=== PATIENT | female | born 1985 | race Caucasian/White ===

== ENCOUNTER 2019-03-16 16:50 | Inpatient (IN) | payer BC ==
[2019-03-16] MEDS ORDERED: NS / Oxytocin 40 units/1000ml 1,000 ML IV PRN (17:34)
[2019-03-16] MEDS ORDERED: Ibuprofen 800 MG TAB PO PRN (17:34)
[2019-03-16] MEDS ORDERED: Methylergonovine 0.2 MG/ML VIAL IM PRN ×2 (17:34→22:35)
[2019-03-16] MEDS ORDERED: Promethazine HCl 25 MG/ML VIAL IM PRN (17:34)
[2019-03-16] MEDS ORDERED: Carboprost 250 MCG/ML AMP IM PRN (17:34)
[2019-03-16] MEDS ORDERED: Diphenoxylate HCl/Atropine Tablet PO PRN ×2 (17:34)
[2019-03-16] MEDS ORDERED: Lactated Ringer's 1,000 ML IV PRN (17:34)
[2019-03-16] MEDS ORDERED: Ondansetron PF 4 MG/2 ML Vial IVP PRN (17:34)
[2019-03-16] MEDS ORDERED: Misoprostol 200 MCG TAB PR PRN (17:34)
[2019-03-16] MEDS ORDERED: HYDROcodone/Acetaminophen 5/325 mg Tablet PO PRN ×4 (17:34→22:35)
[2019-03-16] MEDS ORDERED: Lidocaine 1% (PF) 30 ML VIAL SC PRN (17:34)
[2019-03-16 18:00] LABS: Hemoglobin 13.3 g/dL (12.0-16.0); Mean Corpuscular HGB CONC 33.9 g/dL (32.0-36.0); Mean Corpuscular Hemoglobin 30.8 pg (27.0-31.0); Mean Corpuscular Volume 90.9 fL (78.0-98.0); Platelet Count 237 thou/uL (130-400); White Blood Cell (WBC) Count 14.2 thou/uL (4.8-10.8)
[2019-03-16 18:32] LABS: ALT (SGPT) 12 U/L (8-55); AST (SGOT) 21 U/L (5-34); Albumin 3.5 g/dL (3.5-5.0); Alkaline Phosphatase 192 U/L (40-150); Anion Gap 15 mmol/L (10-20); BUN (Urea Nitrogen) 12 mg/dL (7.0-18.7); Bilirubin, Total 0.3 mg/dL (0.2-1.2); Calc. Creatinine Clearance 116 mL/min (70-130); Calcium 8.8 mg/dL (7.8-10.44); Carbon Dioxide 19 mmol/L (22-29); Chloride 106 mmol/L (98-107); Estimated GFR-MDRD 83; Globulin 2.8 g/dL (2.4-3.5); Glucose 88 mg/dL (70-105); Protein, Total 6.3 g/dL (6.0-8.3); Sodium 136 mmol/L (136-145)
[2019-03-16 18:39] LABS: HBSAg Index 0.78 S/CO (0-0.99); Hep B Surf Ag Non-Reactive S/CO (NonReactive); Syphilis Antibody Nonreactive (Nonreactive); Syphilis Antibody Index 0.05 S/CO (<1.00 Non-Reactive)
[2019-03-16] MEDS ORDERED: Lidocaine 1% (PF) 30 ML VIAL ONE (18:46)
--- NOTE | 2019-03-16 20:36 | PDOC.LDHP ---
Labor and Delivery H&P Chief complaint: contractions HPI: Patient started having irregular contractions at 10am this morning. Denies ROM. Reports positive movement. 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 Current gestational age (weeks): 40 (6) Due date: 03/10/18 Dating criteria: last menstrual period Grav: 2 Para: 1 OB History Details: 2016 at 42 weeks. 7.2. female Current complications: none Abnormal US findings: No Past Medical History: HSV, on suppression. CF carrier, is neg CF carrier Current medications: pre-randi vitamins, other (Valtrex 500mg PO QD) Previous surgical history: none Allergies/Adverse Reactions: Allergies Allergy/AdvReac Type Severity Reaction Status Date / Time Penicillins Allergy Verified 03/16/19 17:22 Social history: none - Physical Exam Vital signs reviewed and normal: yes General: breathing through contractions Lungs: nonlabored breathing Abdomen: gravid FHT: category 1 - OB Labs Blood type: O RH: positive Antibody Screen: negative HIV: negative RPR: negative HEPSAg: negative 1 hour GCT: negative GBS: negative Rubella: immune - Assessment L&D Assessment: term patient in labor - Plan Plan: admit to L&D -: Low intervention protocol. Anticipate .
--- NOTE | 2019-03-16 20:42 | PDOC.OPDEL ---
OB Operative/Delivery Note Delivery Dr/Surgeon: Leatha Hammond Pre-Delivery Diagnosis: active labor Procedure/Post Delivery Dx: spontaneous vaginal delivery Weeks gestation: 40 Anesthesia: none - Findings A Sex: female Weight: 7 lb 11 oz - 1 min: 8 - 5 min: 9 - Additional Findings/Plan Placenta delivered: spontaneous Repaired Obstetrical Laceration: 1st degree Estimated blood loss: 350mL Post delivery plan: routine recovery
[2019-03-16] MEDS ORDERED: Milk Of Magnesia 30 ML UDCUP PO PRN (22:35)
[2019-03-16] MEDS ORDERED: Benzocaine-Menthol 82.5 ML CAN TOP PRN (22:35)
[2019-03-16] MEDS ORDERED: Misoprostol 200 MCG TAB VAG PRN (22:35)
[2019-03-16] MEDS ORDERED: Bisacodyl 10 MG SUPP PR PRN (22:35)
[2019-03-16] MEDS ORDERED: NS / Oxytocin 40 units/1000ml 1,000 ML IV SCH (22:35)
[2019-03-17] MEDS: Ibuprofen 800 MG TAB PO SCH ×4 (00:30→22:14)
[2019-03-17] MEDS: Docusate Calcium (SURFAK) 240 MG CAP PO SCH ×3 (01:38→22:14)
[2019-03-17] MEDS: Ferrous Sulfate 325 MG TAB PO SCH ×2 (07:44→18:18)
[2019-03-17] MEDS ORDERED: Prenatal Vitamin 1 TAB PO SCH (09:00)
[2019-03-17] MEDS ORDERED: Adacel (T-DAP) 0.5 ML SYRINGE IM ONE (09:00)
[2019-03-17] MEDS ORDERED: valACYclovir 500 MG TAB PO SCH (09:00)
--- NOTE | 2019-03-17 14:34 | PDOC.PP ---
Post Progress Note Post Day #: 1 Subjective: robert patel. She feel even better than after delivering her first baby. is sleepy, but no other concerns with . PO intake tolerated: yes Flatus: yes Ambulation: yes Vital Signs (12 hours) Pulse Resp BP Pulse Ox 03/17/19 04:25 79 18 115/84 97 Weight Weight 160 lb - Physical Examination General: NAD Cardiovascular: no m/r/g, RRR Respiratory: clear to auscultation bilaterally Abdominal: + bowel sounds, lochia (minimal) Fundus firm & at: -1 Extremities: negative homans (B) Perineum: non edematous Neurological: no gross focal deficits Psychiatric: A&Ox3, normal affect Result Diagrams: 03/16/19 17:53 03/16/19 17:53 Additional Labs: Post Labs Blood Type O POSITIVE 03/16/19 17:53 Hep Bs Antigen Non-Reactive S/CO (NonReactive) 03/16/19 17:53 (1) (spontaneous vaginal delivery) Code(s): O80 - ENCOUNTER FOR FULL-TERM UNCOMPLICATED DELIVERY Status: Acute (2) 40 weeks gestation of Code(s): Z3A.40 - 40 WEEKS GESTATION OF Status: Acute (3) History of herpes genitalis Code(s): Z86.19 - PERSONAL HISTORY OF OTHER INFECTIOUS AND PARASITIC DISEASES Status: Acute - Assessment/Plan A: G2 now p2 SP following spontaneous labor. No lacerations or other complications. NML PPD #1 exam P: Routine care until discharge Discharge home late tonight if is discharged or early tomorrow morning.
[2019-03-17 23:03] VITALS: BP 119/78; TEMP 98.6
== END 2019-03-17 22:50 | disposition home or self-care (01) | DRG 806 ==
LOC: L&D/OP 16:50 → L&D-LIB 17:43 → 3SE 23:42
PROVIDERS: ADMIT Obstetrics & Gynecology; ATTEND Obstetrics & Gynecology
PROC: 10E0XZZ Delivery of Products of Conception, External Approach (ICD-10-PCS; principal; 2019-03-16)
PROC: 0HQ9XZZ Repair Perineum Skin, External Approach (ICD-10-PCS; 2019-03-16)
DX: O69.1XX0 Labor and delivery complicated by cord around neck, with compression, not applicable or unspecified (principal); O98.52 Other viral diseases complicating childbirth; Z37.0 Single live birth; B00.9 Herpesviral infection, unspecified; O70.0 First degree perineal laceration during delivery; Z3A.40 40 weeks gestation of pregnancy; Z88.0 Allergy status to penicillin
CPT/HCPCS: 36415; 80053; 85027; 86780; 86850; 86900; 86901; 87340; 99285; J2001; J2405